=== PATIENT | female | born 1985 | race Caucasian/White ===

== ENCOUNTER → 2017-01-11 | Outpatient (CLI) | payer OTHER ==
--- NOTE | 2017-01-11 14:08 | US ---
EXAMINATION TYPE: US OB anatomy transabd DATE OF EXAM: 01/11/2017 1:16 PM COMPARISON: prior scans in pacs HISTORY: LGA, anatomy scan TECHNIQUE: Transabdominal (TA) EXAM MEASUREMENTS: GESTATIONAL AGE / DATING Physician Established: (20 weeks/1 days) EDC: 05/30/2017 Dates by LMP: uncertain lmp Dates by First Scan: (19 weeks/2 days) EDC: 06/06/2017 Dates by Current Scan for: (18 weeks/5 days) EDC: 06/09/2017 SURVEY IUP: Single PLACENTA: anterior fundal PREVIA: no previa SHAWN: 12.5 cm Normal CERVICAL LENGTH (transabdominal: norm > 3.0cm): 3.8 cm BIOMETRY PRESENTATION: Variable LIE: Transverse lie with head maternal left BPD: 4.2 cm 18 weeks / 6 days HC: 15.8 cm 18 weeks / 5 days AC: 13.0 cm 18 weeks / 4 days FL: 2.9 cm 18 weeks / 6 days ESTIMATED WEIGHT IN GRAMS: 253 grams ESTIMATED WEIGHT IN LBS/OZS: 0 lbs. 9 oz. WEIGHT PERCENTAGE BASED ON ESTABLISHED DATE: less than 3 % HC/AC: 1.22 FL/AC: 22 HEART RATE: 155 bpm RHYTHM: Normal ANATOMY SEEN (within normal limits): * Lateral Vent (< 1 cm) 0.7 cm * Cisterna Magna (< 1.1 cm) 0.3 cm * Nuchal Fold (< 0.6 cm) 0.2 cm * Cerebellum (varies with age) 1.8 cm Choroid Plexus (bilateral) Midline Falx Cavus Septi Pellucidi Four Chamber Heart Outflow tracts: LVOT/RVOT Stomach Situs Diaphragm Kidneys (bilateral) Bladder Cord Insert Three Vessel Cord Longitudinal Spine Transverse Spine Arms (bilateral) Legs (bilateral) ANATOMY SEEN (does not appear within normal limits): Echogenic Bowel ANATOMY NOT SEEN: Nose / Lips TECHNOLOGIST IMPRESSION: Growth less than 3% based on established dates; echogenic appearing bowel. Preliminary called to the office; msg taken as RN was at lunch. IMPRESSION: Echogenic bowel. This canbeseen in trisomy 21 and less commonly and triscaphe 13 and 18 as well as Tu rner's syndrome. It can also be seen in intrauterine cytomegaly virus infections and finally in intra uterine growth restriction.
== END | disposition home or self-care (01) ==
LOC: RADUSWWP 12:32
PROVIDERS: ATTEND Obstetrics & Gynecology
DX: O36.62X0 Maternal care for excessive fetal growth, second trimester, not applicable or unspecified (principal); Z34.82 Encounter for supervision of other normal pregnancy, second trimester; Z3A.18 18 weeks gestation of pregnancy
CPT/HCPCS: 36415; 76811; 82105; 82677; 84702; 86336

== ENCOUNTER → 2017-02-17 | Outpatient (CLI) | payer OTHER ==
[2017-02-17 10:33] LABS: CH 27.9; CHCM 32.8; HDW 2.81; HGB 11.8 gm/dL (11.4-16.0); MCH 27.9 pg (25.0-35.0); MCHC 32.7 g/dL (31.0-37.0); MCV 85.3 fL (80.0-100.0); Mean Platelet Volume 7.5; RBC 4.23 m/uL (3.80-5.40); RDW 13.8 % (11.5-15.5); WBC 11.7 k/uL (3.8-10.6)
== END | disposition home or self-care (01) ==
LOC: LABWHC1 09:03
PROVIDERS: ATTEND Internal Medicine
DX: Z34.82 Encounter for supervision of other normal pregnancy, second trimester (principal)
CPT/HCPCS: 36415; 82950; 85027

== ENCOUNTER → 2017-03-11 | Outpatient (CLI) | payer OTHER ==
[2017-03-11 11:43] LABS: Glucose 3 Hour, Gest 125 mg/dL
== END | disposition home or self-care (01) ==
LOC: LABWHC1 07:55
PROVIDERS: ATTEND Obstetrics & Gynecology
DX: O24.419 Gestational diabetes mellitus in pregnancy, unspecified control (principal); Z3A.00 Weeks of gestation of pregnancy not specified
CPT/HCPCS: 36415; 82951; 82952

== ENCOUNTER 2017-06-09 19:13 | Inpatient (IN) | payer OTHER ==
[2017-06-09] MEDS ORDERED: TERBUTALINE 1 MG/ML VIAL SQ PRN (19:45)
[2017-06-09] MEDS ORDERED: METHYLERGONOVINE 0.2 MG/ML 1 ML AMP IM PRN (19:45)
[2017-06-09] MEDS ORDERED: OXYTOCIN 10 UNIT/ML 1 ML VIAL IM PRN (19:45)
[2017-06-09] MEDS ORDERED: CARBOPROST TROMETHAMINE 250 MCG/ML 1 ML AMP IM PRN (19:45)
[2017-06-09] MEDS ORDERED: LIDOCAINE 1% (PF) 10 MG/ML (30 ML SDV) SQ PRN (19:45)
--- NOTE | 2017-06-09 20:22 | P.HPOB ---
History of Present Illness H&P Date: 06/09/17 Chief Complaint: Contractions This is a 32-year-old female 2 para 1 at 40-3/7 weeks with an estimated date of confinement of 06/06/2017, who presents to labor and delivery with complaints of contractions that began approximate 4:30 PM and became much stronger on the way here. She felt like she had to push in the car. Upon arrival to triage, she was unable to stop pushing and delivered vaginally in triage with nursing staff present. She states her care has been uncomplicated and with Dr. Law. She was just seen in the office earlier today and was noted to be 4 cm. labs: GC/chlamydia-negative HIV-nonreactive Random glucose-77 Hepatitis B surface antigen-negative Hemoglobin-12.6 Syphilis antibody-nonreactive Rubella-immune Blood type-A+ Antibody screen-negative Quad screen-within normal limits Anatomy scan-within normal limits Three-hour Glucola-within normal limits Group B streptococcus-negative Obstetrical history: . One vaginal delivery at full-term. Review of Systems Gastrointestinal: Reports abdominal pain Genitourinary: Reports pelvic pain, Reports Past Medical History Past Medical History: No Reported History History of Any Multi-Drug Resistant Organisms: None Reported Additional Past Surgical History / Comment(s): Rhinoplasty Past Anesthesia/Blood Transfusion Reactions: No Reported Reaction Past Psychological History: No Psychological Hx Reported Smoking Status: Former smoker Past Alcohol Use History: None Reported Past Drug Use History: None Reported - Past Family History Mother Family Medical History: No Reported History Medications and Allergies Home Medications Medication Instructions Recorded Confirmed Type Pnv,Calcium 72/Iron/Folic Acid 1 each PO DAILY 11/11/15 11/11/15 History [ Plus Tablet] Allergies Allergy/AdvReac Type Severity Reaction Status Date / Time No Known Allergies Allergy Verified 06/09/17 19:43 Exam Osteopathic Statement: *. No significant issues noted on an osteopathic structural exam other than those noted in the History and Physical/Consult. - Vital Signs Vital signs: Intake and Output 06/09/17 06/09/17 06/09/17 06:59 14:59 22:59 Other: Weight 107.048 kg Patient Weight 06/10/17 06:59 Weight 107.048 kg HEENT within normal limits Heart: Regular rate and rhythm Lungs: Clear to auscultation bilaterally Abdomen: Soft, nontender Pelvic exam: Fetus is delivered and there does appear to be a small second- degree perineal laceration. Fundus is firm and nontender with minimal bleeding noted. Extremities: Negative Homans Assessment and Plan (1) 39 weeks gestation of Status: Acute Plan: Admission for active labor and .
--- NOTE | 2017-06-09 20:24 | P.PROBDLV ---
Vaginal Delivery Note - . Vaginal Delivery Note: The patient arrived in labor and delivery triage with urge to push and baby . delivered vaginally shortly after arrival to triage with nursing staff present. Spontaneous rupture membranes with clear fluid was noted right before delivery. Cord was clamped and cut after delivery of the . A viable female infant was noted with scores of 9 at 1 minute and 9 at 5 minutes and infant weight of 8 lbs. 13 oz. Placenta delivered shortly afterwards intact, with a three-vessel cord. Uterus contracted well after oxytocin was given and uterine massage was carried out. Inspection of her perineum revealed a small second-degree perineal laceration. This area was anesthetized with 1% lidocaine and then sutured with 3-0 and 2-0 Vicryl suture in the usual multilayer fashion. Estimated blood loss is approximately 150 mL' s. Both mother and are in stable condition.
[2017-06-09] MEDS ORDERED: OXYTOCIN 20 UNITS/1000 ML NS 1,000 ML IV SCH ×2 (20:35→21:00)
[2017-06-09] MEDS ORDERED: HYDROCORTISONE 2.5% RECTAL CREAM 30 GM TUBE RECTAL PRN (20:35)
[2017-06-09] MEDS ORDERED: diphenhydrAMINE 25 MG CAP PO PRN (20:35)
[2017-06-09] MEDS ORDERED: diphenhydrAMINE 50 MG CAP PO PRN (20:35)
[2017-06-09] MEDS ORDERED: Acetaminophen-Codeine 300-30mg TAB PO PRN ×2 (20:35)
[2017-06-09] MEDS ORDERED: diphenhydrAMINE 50 MG/ML 1 ML VIAL IVP PRN ×2 (20:35)
[2017-06-09] MEDS ORDERED: ACETAMINOPHEN TAB 325 MG TAB PO PRN (20:35)
[2017-06-09] MEDS ORDERED: ZOLPIDEM 5 MG TAB PO PRN (20:35)
[2017-06-09] MEDS ORDERED: BENZOCAINE/MENTHOL SPRAY 1 GM/SPRAY AEROSOL TOPICAL PRN (20:35)
[2017-06-09] MEDS ORDERED: LANOLIN CREAM 5 GM TUBE TOPICAL PRN (20:35)
[2017-06-09] MEDS ORDERED: IBUPROFEN 600 MG TAB PO PRN (20:35)
[2017-06-09] MEDS ORDERED: SIMETHICONE 80 MG CHEWABLE PO PRN (20:35)
[2017-06-09] MEDS ORDERED: WITCH HAZEL 1 EACH MED..PAD TOPICAL PRN (20:35)
[2017-06-09 20:39] LABS: Aty Lym Flag Marked; CH 27.2; CHCM 32.9; HCT 41.4 % (34.0-46.0); HDW 2.72; HGB 13.7 gm/dL (11.4-16.0); MCH 27.4 pg (25.0-35.0); MCHC 33.1 g/dL (31.0-37.0); MCV 82.9 fL (80.0-100.0); MPO Flag Slight; RBC 4.99 m/uL (3.80-5.40); RDW 14.3 % (11.5-15.5); WBC 11.5 k/uL (3.8-10.6); WBC (Perox) 11.96
[2017-06-09 20:55] LABS: Add Differential Manual Differential
[2017-06-09 20:56] LABS: Manual Review Performed; Nucleated Red Blood Cells 0 /100 WBC (0-0); Total Cells Counted 100; Toxic Granulation Present
[2017-06-09 20:57] VITALS: BMI 38.0
[2017-06-10] MEDS ORDERED: SENNOSIDES-DOCUSATE SODIUM 1 EACH TAB PO SCH (08:00)
[2017-06-10 08:34] LABS: Aty Lym Flag Marked; CH 27.1; CHCM 33.8; HCT 32.9 % (34.0-46.0); HDW 2.64; HGB 11.7 gm/dL (11.4-16.0); MCH 28.7 pg (25.0-35.0); MCHC 35.5 g/dL (31.0-37.0); MCV 80.7 fL (80.0-100.0); MPO Flag Slight; Mean Platelet Volume 7.9; RBC 4.07 m/uL (3.80-5.40); RDW 14.3 % (11.5-15.5); WBC (Perox) 10.64
--- NOTE | 2017-06-10 08:34 | P.DS ---
Providers Date of admission: 06/09/17 19:22 Expected date of discharge: 06/10/17 Attending physician: Elsi Law Primary care physician: Stated None - Discharge Diagnosis(es) (1) Normal vaginal delivery Current Visit: No Status: Acute Hospital Course: 32-year-old presented in active labor and delivered precipitously and triage. Her course was uncomplicated. She will be discharged home day #1 in stable condition to follow-up with me in 6 weeks. She denies nausea, vomiting, chest pain, shortness of breath or calf pain. Her lochia is decreasing, she is voiding and ambulating without difficulty. Plan - Discharge Summary New Discharge Prescriptions: No Action Pnv,Calcium 72/Iron/Folic Acid [ Plus Tablet] 1 each PO DAILY Discharge Medication List Pnv,Calcium 72/Iron/Folic Acid [ Plus Tablet] 1 each PO DAILY 11/11/15 [ History] Follow up Appointment(s)/Referral(s): Elsi Law DO [Doctor of Osteopathic Medicine] - 6 Weeks Discharge Disposition: HOME SELF-CARE
[2017-06-10] MEDS ORDERED: PRENATAL VIT-IRON-FOLIC ACID 1 EACH CAP PO SCH (09:00)
[2017-06-10 09:29] LABS: Add Differential Manual Differential
[2017-06-10 09:32] LABS: Manual Review Performed; Nucleated Red Blood Cells 0 /100 WBC (0-0); Total Cells Counted 100
[2017-06-10 09:33] LABS: RBC Morphology Normal
[2017-06-10 16:58] VITALS: RESP 18
[2017-06-10 21:22] VITALS: BP 128/84; PULSE 80; TEMP 97.9
== END 2017-06-10 20:45 | disposition home or self-care (01) | DRG 775 ==
LOC: FBPOP 19:13 → 4FBP 19:22
PROVIDERS: ADMIT Obstetrics & Gynecology; ATTEND Obstetrics & Gynecology
PROC: 10E0XZZ Delivery of Products of Conception, External Approach (ICD-10-PCS; principal; 2017-06-09)
PROC: 0KQM0ZZ Repair Perineum Muscle, Open Approach (ICD-10-PCS; 2017-06-09)
DX: O62.3 Precipitate labor (principal); O70.1 Second degree perineal laceration during delivery; Z37.0 Single live birth; Z3A.39 39 weeks gestation of pregnancy; Z87.891 Personal history of nicotine dependence; Z79.899 Other long term (current) drug therapy
CPT/HCPCS: 85025; 88307

== ENCOUNTER 2020-09-14 14:13 | Emergency (ER) | payer OTHER ==
[2020-09-14 14:25] VITALS: BP 143/91; PULSE 96; RESP 18; TEMP 99.1
--- NOTE | 2020-09-14 15:12 | ED ---
Lower Extremity Injury HPI - General Chief Complaint: Extremity Injury, Lower Stated Complaint: L knee injury Time Seen by Provider: 09/14/20 14:27 Source: patient Mode of arrival: ambulatory Limitations: no limitations - History of Present Illness Initial Comments: Patient is a 35-year-old female presenting to the emergency Department with complaints of pain in her left knee after she fell yesterday. Patient states she was walking backwards and came into contact with a picnic table and she fell over to the side landing mostly on the anterior portion of her left knee. Patient states it was sore yesterday and this morning but she tried to put some ice on it and elevate however the pain has continued so she wanted to be seen. She denies any previous injuries or surgeries to her left knee. She denies any other injuries from her fall. She has no further complaints at this time. - Related Data Home Medications Medication Instructions Recorded Confirmed Pnv,Calcium 72/Iron/Folic Acid 1 each PO DAILY 11/11/15 11/11/15 [ Plus Tablet] Allergies Allergy/AdvReac Type Severity Reaction Status Date / Time No Known Allergies Allergy Verified 09/14/20 14:25 Review of Systems ROS Statement: Those systems with pertinent positive or pertinent negative responses have been documented in the HPI. ROS Other: All systems not noted in ROS Statement are negative. Past Medical History Past Medical History: No Reported History Additional Past Medical History / Comment(s): Obstetric history: This is her first and she has had care with me since 10 weeks. A+, abs neg, Rub nonimmune, RPR NR, Hep B neg. normal anatomy US and normal 1hr GTT. GBS neg. History of Any Multi-Drug Resistant Organisms: None Reported Past Surgical History: No Surgical Hx Reported Additional Past Surgical History / Comment(s): Rhinoplasty Past Anesthesia/Blood Transfusion Reactions: No Reported Reaction Past Psychological History: No Psychological Hx Reported Smoking Status: Former smoker Past Alcohol Use History: Occasional Past Drug Use History: Marijuana - Past Family History Mother Family Medical History: No Reported History General Exam - General Exam Comments Initial Comments: GENERAL: Patient is well-developed and well-nourished. Patient is nontoxic and in no acute distress. HEAD: Atraumatic, normocephalic. EYES: Pupils equal round and reactive to light, extraocular movements intact, sclera anicteric, conjunctiva are normal. Eyelids were unremarkable. ENT: TMs normal, nares patent, oropharynx clear without exudates. Moist mucous membranes. NECK: Normal range of motion, supple without lymphadenopathy or JVD. LUNGS: Unlabored respirations. Breath sounds clear to auscultation bilaterally and equal. No wheezes rales or rhonchi. HEART: Regular rate and rhythm without murmurs, rubs or gallops. ABDOMEN: Soft, nontender, normoactive bowel sounds. No guarding, no rebound. No masses appreciated. : Deferred MUSCULOSKELETAL: Pain with palpation of the anterior, lateral aspect of the left knee. She does have some moderate swelling compared to the right knee. She has decreased range of motion, range is approximately 5 to 40. Negative anterior drawer, negative valgus or varus stress. Positive Ace's. No clubbing or cyanosis. NEUROLOGICAL: Patient is alert and oriented x 3. Motor and sensory are also intact. Symmetrical smile. Normal speech. PSYCH: Normal mood, normal affect. SKIN: Warm, Dry, normal turgor, no rashes or lesions noted. Limitations: no limitations Course Vital Signs 09/14/20 14:21 Temperature 99.1 F Pulse Rate 96 Respiratory 18 Rate Blood Pressure 143/91 O2 Sat by Pulse 99 Oximetry Medical Decision Making - Medical Decision Making Patient is a 35-year-old female here for left knee pain after she fell onto it yesterday. No previous history of knee surgeries or injuries. She does have significant swelling, limited range of motion. X-rays of left knee revealed no acute fractures dislocations, moderate size joint effusion. I discussed with patient that this is most likely some sort of internal derangement. I will give her orthopedic referral. I recommended continuing with ice, ibuprofen, limit weightbearing. Patient is agreeable with this plan of care. She is stable for discharge. Disposition Clinical Impression: Left anterior knee pain, Internal derangement of left knee Disposition: HOME SELF-CARE Condition: Stable Instructions (If sedation given, give patient instructions): Knee Pain (ED) Additional Instructions: Please return to the Emergency Department if symptoms worsen or any other concerns. X-rays are negative today for fractures dislocations, moderate size joint effusion present. Continue to ice, elevate, ibuprofen for discomfort. Follow-up with orthopedics as discussed. Is patient prescribed a controlled substance at d/c from ED?: No Referrals: None,Stated [Primary Care Provider] - 1-2 days Wilver Cohn DO [Doctor of Osteopathic Medicine] - 1-2 days
--- NOTE | 2020-09-14 15:12 | XR ---
EXAMINATION TYPE: XR knee 4V LT DATE OF EXAM: 09/14/2020 COMPARISON: NONE HISTORY: Knee pain TECHNIQUE: 4 views FINDINGS: Joint spaces are normal. I see no fracture nor dislocation. There is however a moderate siz e knee joint effusion. The patella appears intact. IMPRESSION: Moderate size knee joint effusion. No fracture seen.
== END 2020-09-14 15:29 | disposition home or self-care (01) ==
LOC: EC 14:13
DX: M23.92 Unspecified internal derangement of left knee (principal); Z87.891 Personal history of nicotine dependence; W01.198A Fall on same level from slipping, tripping and stumbling with subsequent striking against other object, initial encounter
CPT/HCPCS: 99283

== ENCOUNTER → 2020-10-29 | Outpatient (CLI) | payer OTHER ==
--- NOTE | 2020-10-29 14:56 | MR ---
EXAMINATION TYPE: MR knee LT wo con DATE OF EXAM: 10/29/2020 COMPARISON: Left knee x-ray September 14, 2020 HISTORY: Pain in left knee, r/o torn meniscus, recent fall injury. TECHNIQUE: Multiplanar, multisequence imaging of the left knee is performed without IV contrast. FINDINGS: MEDIAL MENISCUS: Anterior and posterior horns are intact without tear. LATERAL MENISCUS: Anterior and posterior horns are intact without tear. CRUCIATE LIGAMENTS: The anterior and posterior cruciate ligaments are intact and unremarkable. COLLATERAL LIGAMENTS: The medial collateral ligament and lateral collateral ligament complex are inta ct. Mild fluid signal fills medial collateral ligament coronal image 19. EXTENSOR MECHANISM: Visualized quadriceps and patellar tendons are intact. EFFUSION: Tiny to small suprapatellar joint effusion extending laterally. This is improved from prio r x-ray. POPLITEAL CYST: No popliteal/lester cyst. TRICOMPARTMENT SPACES: Mild narrowing medial tibiofemoral compartment. No significant spurring. CARTILAGE: Tricompartmental articular cartilage is preserved. BONE MARROW SIGNAL: Heterogeneity consistent with red marrow reconversion. More focal irregular T2 hy perintensity in the lateral aspect of the distal lateral femoral condyle suspicious for resolving oss eous contusion and/or bone marrow edema. OTHER: No additional significant abnormality is appreciated. IMPRESSION: 1. No meniscal or ligamentous tear is seen. 2. Mild MCL sprain injury. 3. Small to tiny suprapatellar joint effusion resolving from recent x-ray 4. Likely resolving osseous contusion and/or bone marrow edema lateral aspect distal lateral femoral condyle.
== END | disposition home or self-care (01) ==
LOC: RADMRIMAIN 14:00
PROVIDERS: ATTEND Orthopaedic Surgery
DX: S83.412A Sprain of medial collateral ligament of left knee, initial encounter (principal); M25.462 Effusion, left knee

== ENCOUNTER → 2023-06-09 | Outpatient (CLI) | payer OTHER ==
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
== END | disposition home or self-care (01) ==
LOC: RADMRIMAIN 13:32
PROVIDERS: ATTEND Family Medicine
DX: M50.122 Cervical disc disorder at C5-C6 level with radiculopathy (principal); M48.02 Spinal stenosis, cervical region; Z87.828 Personal history of other (healed) physical injury and trauma
CPT/HCPCS: 72156; A9585